=== PATIENT | female | born 1965 | race Caucasian/White ===

== ENCOUNTER 2019-09-10 08:48 | Outpatient (CLI) | payer MEDICARE ==
[~2019-09-10 08:48] MED LIST: FERUMOXYTOL 510 MG in NORMAL SALINE 100 ML IV PRN; NORMAL SALINE 250 ML IV PRN
[2019-09-10 10:08] VITALS: BP 98/63
== END 2019-09-10 10:28 | disposition home or self-care (01) ==
LOC: II 08:48 → 5TH 08:52 → II 10:28
PROVIDERS: ATTEND Internal Medicine
DX: D50.9 Iron deficiency anemia, unspecified (principal); K90.9 Intestinal malabsorption, unspecified
CPT/HCPCS: 96365; Q0138; J7050

== ENCOUNTER 2019-09-18 08:55 | Outpatient (CLI) | payer MEDICARE ==
[2019-09-18 09:50] VITALS: BP 103/68
== END 2019-09-18 09:46 | disposition home or self-care (01) ==
LOC: II 08:55 → 5TH 09:33 → II 09:46
PROVIDERS: ATTEND Internal Medicine
DX: D50.9 Iron deficiency anemia, unspecified (principal); K90.9 Intestinal malabsorption, unspecified
CPT/HCPCS: 96365; Q0138; J7050